=== PATIENT | female | born 1930 | race Caucasian/White ===

== ENCOUNTER 2018-01-20 14:41 | Inpatient (IN) ==
[2018-01-20] MEDS ORDERED: cefTRIAXone 2,000 MG in SODIUM CHLORIDE 0.9% 100 ML IV ONE (15:52)
[2018-01-20 16:19] LABS: Basophils % 0.2 % (0.0-0.8); Hematocrit 36.8 VOL% (35.7-47.0); Hemoglobin 12.3 GM/DL (12.0-16.0); Immature Granulocytes % 1.4 %; Immature Granulocytes Absolute 0.28 #; Lymphocytes # 1.5 10*3/uL (1.4-4.0); Lymphocytes % 7.3 % (21.3-54.2); Mean Corpuscular HGB Conc 33.4 GM/DL (32-36); Mean Corpuscular Hemoglobin 31 PG (27-34); Mean Corpuscular Volume 93.4 FL (87-102); Mean Platelet Volume 11.1 FL (9.6-12.0); Monocytes # 2.1 10*3/uL (0.11-0.8); Monocytes % 10.5 % (1.7-12.7); Neutrophils # 16.5 10*3/uL (1.4-7.4); Neutrophils % 80.6 % (38.7-73.9); Platelet Count 206 T/CUMM (130-400); Red Blood Count 3.94 MC/CUMM (3.8-5.5); Red Cell Distribution Width 14.4 % (9.3-17.3); White Blood Count 20.5 T/CUMM (4-12)
[2018-01-20] MEDS ORDERED: SODIUM CHLORIDE 0.9% 500 ML IV STA (16:25)
[2018-01-20 16:27] LABS: INR 1.6; PT Patient Result 16.2 SECS; Partial Thromboplastin Time 33.6 SECS (0-40)
[2018-01-20] MEDS ORDERED: cefTRIAXone 1,000 MG VIAL ONE (16:27)
[2018-01-20 16:32] LABS: Amorphous Crystals,Urine Occasional /HPF (Few); Apearance,Urine Slightly Hazy (Clear); Bilirubin,Urine Negative (Negative); Blood, Urine Negative (Negative); Glucose,Urine (UA) Negative (Negative); Ketones,Urine Negative (Negative); Mucus,Urine Occasional /LPF (Occasional); Nitrite,Urine Negative (Negative); Protein,Urine 30 MG/DL; Squamous Epithelial Cell,Urine Occasional /HPF (0-10); Urine Color Yellow (Yellow); Urine Specific Gravity 1.014 (1.001-1.035); Urine Urobilinogen < 2.0 EU/DL (0.2-1.0); WBC,Urine 3 /HPF (0-6)
[2018-01-20 16:38] LABS: Lymphocytes 3 % (20-55); Platelet Estimate Normal; Segmented Neutrophils 88 % (50-85); Total Cells Counted 100
[2018-01-20] MEDS ORDERED: MAGNESIUM SULF RIDER 4 GM in PREMIX 1 EACH IV PRN (16:43)
[2018-01-20] MEDS ORDERED: AZITHROMYCIN INJ 500 MG in SODIUM CHLORIDE 0.9% 250 ML IV SCH (17:00)
[2018-01-20] MEDS ORDERED: cefTRIAXone 1,000 MG in SYRINGE 1 EACH IV SCH (17:00)
[2018-01-20] MEDS ORDERED: ONDANSETRON 4 MG/2 ML VIAL IV PRN (17:07)
[2018-01-20 17:17] LABS: Sedimentation Rate-Westergren 70 MM/HR (0-30)
[2018-01-20 17:21] LABS: Ammonia < 10 UMOL/L (11-32)
[2018-01-20 17:23] LABS: Calcium 10.7 MG/DL (8.5-10.1)
[2018-01-20 17:24] LABS: Alanine Aminotransferase 26 U/L (13-56); Albumin 2.6 G/DL (3.4-5.0); Alkaline Phosphatase 114 U/L (45-117); Aspartate Amino Transferase 35 U/L (0-37); Bilirubin,Total 0.53 MG/DL (0.2-1.0); Blood Urea Nitrogen 39 MG/DL (7-18); Glucose 92 MG/DL (74-106); Osmolality,Calculated 278.1 MOS/KG (273-304); Sodium 135 MMOL/L (136-145); Total Protein 6.2 G/DL (6.4-8.3)
[2018-01-20] MEDS: SODIUM CHLORIDE 0.45% 1,000 ML IV SCH (19:10)
[2018-01-20] MEDS ORDERED: WARFARIN 4 MG TABLET PO SCH (19:30)
[2018-01-21 04:27] LABS: INR 1.9; PT Patient Result 19.5 SECS
[2018-01-21 05:01] LABS: Albumin 2.3 G/DL (3.4-5.0); Bilirubin,Total 0.9 MG/DL (0.2-1.0); Calcium 9.6 MG/DL (8.5-10.1); Potassium 3.8 MMOL/L (3.5-5.1); Risk Ratio 2.93; Total Protein 5.6 G/DL (6.4-8.3); VLDL CHOLESTEROL 11.8 MG/DL
[2018-01-21] MEDS: SODIUM CHLORIDE 0.45% 1,000 ML IV SCH (07:59)
[2018-01-21] MEDS: MAGNESIUM SULF RIDER 2 GM in PREMIX 1 EACH IV PRN (08:50)
[2018-01-21] MEDS: PANTOPRAZOLE 40 MG TABLET PO SCH (08:50)
[2018-01-21] MEDS ORDERED: PIPERACILLIN/TAZOBACTAM 3,375 MG in SODIUM CHLORIDE 0.9% 100 ML IV SCH (09:30)
[2018-01-21] MEDS: AZITHROMYCIN INJ 500 MG in SODIUM CHLORIDE 0.9% 250 ML IV SCH (10:00)
[2018-01-21] MEDS: cefTRIAXone 1,000 MG in SYRINGE 1 EACH IV SCH (17:27)
[2018-01-21] MEDS ORDERED: WARFARIN 2 MG TABLET PO SCH (18:00)
[2018-01-21] MEDS: ACETAMINOPHEN 325 MG TABLET PO PRN (19:35)
[2018-01-22] MEDS: SODIUM CHLORIDE 0.45% 1,000 ML IV SCH ×2 (01:49→12:40)
[2018-01-22 04:41] LABS: Basophils % 0.2 % (0.0-0.8); Eosinophils # 0.2 10*3/uL (0.0-0.87); Eosinophils % 1.1 % (0.00-10.9); Hematocrit 34.5 VOL% (35.7-47.0); Hemoglobin 11.4 GM/DL (12.0-16.0); Immature Granulocytes Absolute 0.13 #; Lymphocytes # 1.3 10*3/uL (1.4-4.0); Lymphocytes % 9.6 % (21.3-54.2); Mean Corpuscular Hemoglobin 31 PG (27-34); Mean Corpuscular Volume 92.5 FL (87-102); Mean Platelet Volume 11.3 FL (9.6-12.0); Monocytes # 1.1 10*3/uL (0.11-0.8); Monocytes % 7.9 % (1.7-12.7); Neutrophils # 10.8 10*3/uL (1.4-7.4); Neutrophils % 80.2 % (38.7-73.9); Platelet Count 188 T/CUMM (130-400); Red Blood Count 3.73 MC/CUMM (3.8-5.5); Red Cell Distribution Width 14.2 % (9.3-17.3); White Blood Count 13.4 T/CUMM (4-12)
[2018-01-22 04:49] LABS: INR 3.7
[2018-01-22 05:01] LABS: PT Patient Result 36.8 SECS
[2018-01-22 05:14] LABS: Albumin 2.1 G/DL (3.4-5.0); Bilirubin,Total 0.8 MG/DL (0.2-1.0); Calcium 9.1 MG/DL (8.5-10.1); Total Protein 5.7 G/DL (6.4-8.3)
[2018-01-22 05:15] LABS: Osmolality,Calculated 269.4 MOS/KG (273-304); Potassium 3.2 MMOL/L (3.5-5.1)
[2018-01-22] MEDS: POTASSIUM CHLORIDE RIDER 10 MEQ in PREMIX 1 EACH IV PRN ×2 (05:51→06:46)
[2018-01-22] MEDS ORDERED: POTASSIUM PHOSPHATE 30 MMOL in SODIUM CHLORIDE 0.9% 250 ML IV ONE (07:09)
[2018-01-22] MEDS: ACETAMINOPHEN 325 MG TABLET PO PRN ×2 (08:08→20:15)
[2018-01-22] MEDS: PANTOPRAZOLE 40 MG TABLET PO SCH (08:08)
[2018-01-22] MEDS: AZITHROMYCIN INJ 500 MG in SODIUM CHLORIDE 0.9% 250 ML IV SCH (11:00)
[2018-01-22] MEDS: cefTRIAXone 1,000 MG in SYRINGE 1 EACH IV SCH (18:24)
[2018-01-23] MEDS: SODIUM CHLORIDE 0.45% 1,000 ML IV SCH (01:48)
[2018-01-23 03:11] LABS: Basophils % 0.2 % (0.0-0.8); Eosinophils # 0.2 10*3/uL (0.0-0.87); Eosinophils % 1.7 % (0.00-10.9); Hematocrit 32.3 VOL% (35.7-47.0); Hemoglobin 10.7 GM/DL (12.0-16.0); Immature Granulocytes % 1.3 %; Immature Granulocytes Absolute 0.14 #; Lymphocytes # 1.1 10*3/uL (1.4-4.0); Lymphocytes % 10.3 % (21.3-54.2); Mean Corpuscular HGB Conc 33.1 GM/DL (32-36); Mean Corpuscular Hemoglobin 30 PG (27-34); Mean Corpuscular Volume 91.8 FL (87-102); Mean Platelet Volume 10.9 FL (9.6-12.0); Monocytes % 8.8 % (1.7-12.7); Neutrophils # 8.6 10*3/uL (1.4-7.4); Neutrophils % 77.7 % (38.7-73.9); Platelet Count 212 T/CUMM (130-400); Red Blood Count 3.52 MC/CUMM (3.8-5.5); Red Cell Distribution Width 14.1 % (9.3-17.3)
[2018-01-23 03:23] LABS: INR 3.8
[2018-01-23 03:27] LABS: Bilirubin,Total 0.8 MG/DL (0.2-1.0); Calcium 8.7 MG/DL (8.5-10.1); Osmolality,Calculated 270.1 MOS/KG (273-304); Potassium 3.7 MMOL/L (3.5-5.1); Total Protein 5.4 G/DL (6.4-8.3)
[2018-01-23] MEDS: MAGNESIUM SULF RIDER 2 GM in PREMIX 1 EACH IV PRN (03:44)
[2018-01-23] MEDS ORDERED: AZITHROMYCIN 250 MG TABLET PO SCH (09:00)
[2018-01-23] MEDS ORDERED: MAGNESIUM SULF RIDER 2 GM in PREMIX 1 EACH IV ONE (09:30)
[2018-01-23] MEDS: PANTOPRAZOLE 40 MG TABLET PO SCH (09:41)
[2018-01-23 11:41] VITALS: BP 134/89
[2018-01-23] MEDS ORDERED: POTASSIUM PHOS/SOD PHOS POWDER 250 MG PACK PO SCH (12:00)
[2018-01-23] MEDS ORDERED: CYANOCOBALAMIN 1000 MCG/1 ML VIAL IM SCH (12:00)
== END 2018-01-23 13:10 | DRG 177 ==
LOC: N.ED 14:41 → SUATTDRO 17:41 → N.EDINP 17:41 → N.2E 17:52
PROVIDERS: ADMIT Internal Medicine Geriatric Medicine; ATTEND Internal Medicine

== ENCOUNTER 2018-05-14 12:43 | Observation (INO) ==
[2018-05-14] MEDS ORDERED: SODIUM CHLORIDE 0.9% 1,000 ML IV STA (13:11)
[2018-05-14 14:35] LABS: Basophils % 0.1 % (0.0-0.8); Eosinophils # 0.2 10*3/uL (0.0-0.87); Eosinophils % 2.6 % (0.00-10.9); Hematocrit 33.1 VOL% (35.7-47.0); Hemoglobin 10.3 GM/DL (12.0-16.0); Immature Granulocytes % 1.6 %; Immature Granulocytes Absolute 0.12 #; Lymphocytes # 0.9 10*3/uL (1.4-4.0); Lymphocytes % 11.1 % (21.3-54.2); Mean Corpuscular HGB Conc 31.1 GM/DL (32-36); Mean Corpuscular Hemoglobin 30 PG (27-34); Mean Corpuscular Volume 96.5 FL (87-102); Mean Platelet Volume 10.5 FL (9.6-12.0); Monocytes # 0.5 10*3/uL (0.11-0.8); Monocytes % 6.6 % (1.7-12.7); Platelet Count 303 T/CUMM (130-400); Red Blood Count 3.43 MC/CUMM (3.8-5.5); Red Cell Distribution Width 14.1 % (9.3-17.3); White Blood Count 7.6 T/CUMM (4-12)
[2018-05-14 14:47] LABS: INR 1.4; PT Patient Result 14.7 SECS; Partial Thromboplastin Time 31.7 SECS (0-40)
[2018-05-14 14:59] LABS: Apearance,Urine CLEAR (Clear); Bilirubin,Urine Negative (Negative); Blood, Urine Negative (Negative); Glucose,Urine (UA) Negative (Negative); Hyaline Casts,Urine 3 /LPF (0-3); Ketones,Urine Negative (Negative); Mucus,Urine Occasional /LPF (Occasional); Nitrite,Urine Negative (Negative); Protein,Urine Negative; RBC,Urine 1 /HPF (0-4); Squamous Epithelial Cell,Urine Occasional /HPF (0-10); Urine Color Yellow (Yellow); Urine Specific Gravity 1.011 (1.001-1.035); Urine Urobilinogen < 2.0 EU/DL (0.2-1.0); WBC,Urine 1 /HPF (0-6)
[2018-05-14 14:59] LABS: Alanine Aminotransferase 17 U/L (13-56); Albumin 2.3 G/DL (3.4-5.0); Alkaline Phosphatase 104 U/L (45-117); Aspartate Amino Transferase 23 U/L (0-37); Bilirubin,Total < 0.39 MG/DL (0.2-1.0); Blood Urea Nitrogen 30 MG/DL (7-18); Calcium 8.2 MG/DL (8.5-10.1); Glucose 109 MG/DL (74-106); Osmolality,Calculated 281.7 MOS/KG (273-304); Potassium 4.4 MMOL/L (3.5-5.1); Sodium 138 MMOL/L (136-145); Total Protein 5.2 G/DL (6.4-8.3)
[2018-05-14] MEDS ORDERED: ENOXAPARIN 40 MG/0.4 ML SYRINGE SUBCUT SCH (16:30)
[2018-05-14] MEDS ORDERED: PRAMIPEXOLE 0.25 MG TABLET PO PRN (16:55)
[2018-05-14] MEDS ORDERED: ALUMINUM/MAGNES/SIMETH MAX STR 30 ML UDCUP PO PRN (16:55)
[2018-05-14] MEDS ORDERED: ACETAMINOPHEN 325 MG TABLET PO PRN (16:55)
[2018-05-14] MEDS ORDERED: LACTULOSE 20 GM/30 ML UDCUP PO PRN (16:55)
[2018-05-14] MEDS ORDERED: CYANOCOBALAMIN 1000 MCG/1 ML VIAL IM SCH (17:00)
[2018-05-14] MEDS: SODIUM CHLORIDE 0.9% 1,000 ML IV SCH (18:36)
[2018-05-14] MEDS ORDERED: DOCUSATE SODIUM 100 MG CAPSULE PO SCH (20:00)
[2018-05-14] MEDS ORDERED: SERTRALINE 25 MG TABLET PO SCH (21:00)
[2018-05-14] MEDS ORDERED: MELATONIN 3 MG TABLET PO SCH (21:00)
[2018-05-14] MEDS ORDERED: LATANOPROST 0.005% OPH SOLN 2.5 ML BOTTLE BOTH EYES SCH (21:00)
[2018-05-14] MEDS: MIRTAZAPINE 15 MG TABLET PO SCH ×2 (22:29→22:40)
[2018-05-14] MEDS: CIPROFLOXACIN 500 MG TABLET PO SCH (22:30)
[2018-05-14] MEDS: CARBOXYMETHYLCELLULOSE 1% OPH SOLN BOTH EYES SCH (22:31)
[2018-05-15] MEDS: SODIUM CHLORIDE 0.9% 1,000 ML IV SCH ×2 (02:36→10:37)
[2018-05-15] MEDS ORDERED: PANTOPRAZOLE 40 MG TABLET PO SCH (06:00)
[2018-05-15 06:10] LABS: Basophils % 0.3 % (0.0-0.8); Eosinophils # 0.3 10*3/uL (0.0-0.87); Eosinophils % 3.6 % (0.00-10.9); Hematocrit 33.1 VOL% (35.7-47.0); Hemoglobin 10.2 GM/DL (12.0-16.0); Immature Granulocytes % 1.1 %; Immature Granulocytes Absolute 0.08 #; Lymphocytes # 1.7 10*3/uL (1.4-4.0); Lymphocytes % 23.3 % (21.3-54.2); Mean Corpuscular HGB Conc 30.8 GM/DL (32-36); Mean Corpuscular Hemoglobin 30 PG (27-34); Mean Corpuscular Volume 95.7 FL (87-102); Mean Platelet Volume 10.9 FL (9.6-12.0); Monocytes # 0.6 10*3/uL (0.11-0.8); Monocytes % 8.1 % (1.7-12.7); Neutrophils # 4.6 10*3/uL (1.4-7.4); Neutrophils % 63.6 % (38.7-73.9); Platelet Count 290 T/CUMM (130-400); Red Blood Count 3.46 MC/CUMM (3.8-5.5); Red Cell Distribution Width 14.3 % (9.3-17.3); White Blood Count 7.3 T/CUMM (4-12)
[2018-05-15 06:26] LABS: Calcium 8.4 MG/DL (8.5-10.1); Osmolality,Calculated 277.7 MOS/KG (273-304); Potassium 3.7 MMOL/L (3.5-5.1)
[2018-05-15] MEDS ORDERED: LEVOTHYROXINE 125 MCG TABLET PO SCH (06:30)
[2018-05-15] MEDS ORDERED: METOPROLOL SUCCINATE XL 100 MG TABLET PO SCH (08:00)
[2018-05-15] MEDS ORDERED: LOSARTAN 50 MG TABLET PO SCH (08:00)
[2018-05-15] MEDS ORDERED: NAPROXEN 250 MG TABLET PO SCH (09:00)
[2018-05-15] MEDS ORDERED: MULTIVITAMIN (CENTRUM) TABLET PO SCH (09:00)
[2018-05-15] MEDS ORDERED: POTASSIUM CHLORIDE 10 MEQ TABLET PO SCH (09:00)
[2018-05-15] MEDS ORDERED: MAGNESIUM OXIDE 400 MG TABLET PO SCH (09:00)
[2018-05-15] MEDS ORDERED: CALCIUM (CARBONATE)/VITAMIN D 600 MG-400 UNIT TABLET PO SCH (09:00)
[2018-05-15] MEDS: CIPROFLOXACIN 500 MG TABLET PO SCH (09:54)
[2018-05-15] MEDS: CETIRIZINE 10 MG TABLET PO SCH ×2 (09:57→09:59)
[2018-05-15] MEDS: CARBOXYMETHYLCELLULOSE 1% OPH SOLN BOTH EYES SCH (11:31)
[2018-05-15 16:28] VITALS: BP 163/101
[2018-05-15] MEDS ORDERED: WARFARIN 2 MG TABLET PO SCH (18:00)
== END 2018-05-15 16:49 ==
LOC: EDUNIT# → EDBD → N.EDINP 12:43 → N.ED 12:43 → SUATTDRO 16:16 → N.5E 17:08
PROVIDERS: ADMIT Hospitalist; ATTEND Emergency Medicine

== ENCOUNTER 2018-10-04 19:02 | Inpatient (IN) ==
[2018-10-04] MEDS ORDERED: LEVOFLOXACIN 750 MG TABLET PO STA (19:24)
[2018-10-04] MEDS ORDERED: SODIUM CHLORIDE 0.9% 500 ML IV STA ×2 (19:24→22:26)
[2018-10-04] MEDS ORDERED: DILTIAZEM 50 MG/10 ML VIAL IV STA (19:26)
[2018-10-04] MEDS ORDERED: ONDANSETRON 4 MG/2 ML VIAL IV STA (19:26)
[2018-10-04] MEDS ORDERED: DILTIAZEM 25 MG/5 ML VIAL IV ONE (19:29)
[2018-10-04 20:02] LABS: Basophils # 0.1 10*3/uL (0.0-0.2); Basophils % 0.3 % (0.0-0.8); Eosinophils % 0.2 % (0.00-10.9); Hematocrit 39.2 VOL% (35.7-47.0); Hemoglobin 12.2 GM/DL (12.0-16.0); Immature Granulocytes % 0.7 %; Immature Granulocytes Absolute 0.14 #; Lymphocytes # 0.6 10*3/uL (1.4-4.0); Lymphocytes % 3.2 % (21.3-54.2); Mean Corpuscular HGB Conc 31.1 GM/DL (32-36); Mean Corpuscular Volume 92.7 FL (87-102); Mean Platelet Volume 10.5 FL (9.6-12.0); Monocytes % 4.9 % (1.7-12.7); Neutrophils % 90.7 % (38.7-73.9); Platelet Count 329 T/CUMM (130-400); Red Blood Count 4.23 MC/CUMM (3.8-5.5); Red Cell Distribution Width 15.1 % (9.3-17.3); White Blood Count 19.3 T/CUMM (4-12)
[2018-10-04 20:08] LABS: Apearance,Urine Slightly Hazy (Clear); Bilirubin,Urine Negative (Negative); Blood, Urine Small mg/dL (Negative); Glucose,Urine (UA) 50 mg/dL (Negative); Ketones,Urine 5 mg/dL (Negative); Mucus,Urine Occasional /LPF (Occasional); Nitrite,Urine Negative (Negative); Protein,Urine 30 MG/DL; RBC,Urine 16 /HPF (0-4); Squamous Epithelial Cell,Urine Occasional /HPF (0-10); Urine Color Yellow (Yellow); Urine Specific Gravity 1.009 (1.001-1.035); Urine Urobilinogen < 2.0 EU/DL (0.2-1.0); WBC,Urine <1 /HPF (0-6)
[2018-10-04 20:12] LABS: INR 1.2; PT Patient Result 12.5 SECS
[2018-10-04 20:25] LABS: Albumin 3.1 G/DL (3.4-5.0); Bilirubin,Total 0.6 MG/DL (0.2-1.0); Calcium 9.8 MG/DL (8.5-10.1); Total Protein 7.2 G/DL (6.4-8.3)
[2018-10-04 20:27] LABS: Lymphocytes 2 % (20-55); Platelet Estimate Normal; Segmented Neutrophils 91 % (50-85); Total Cells Counted 100
[2018-10-04 20:28] LABS: Troponin I < 0.015 NG/ML (0.00-0.045)
[2018-10-04] MEDS ORDERED: LEVOFLOXACIN INJ 150 ML IV ONE (20:55)
[2018-10-04] MEDS ORDERED: LEVOFLOXACIN INJ 750 MG in PREMIX 1 EACH IV STA (20:56)
[2018-10-04] MEDS ORDERED: ACETAMINOPHEN 650 MG SUPP RECTAL STA (22:26)
[2018-10-04] MEDS ORDERED: ACETAMINOPHEN 325 MG SUPP RECTAL ONE (22:27)
[2018-10-05] MEDS ORDERED: LOPERAMIDE 2 MG CAPSULE PO PRN (00:31)
[2018-10-05] MEDS ORDERED: ALUMINUM/MAGNES/SIMETH MAX STR 30 ML UDCUP PO PRN (00:31)
[2018-10-05] MEDS ORDERED: ONDANSETRON 4 MG/2 ML VIAL IV PRN (00:31)
[2018-10-05] MEDS ORDERED: LACTULOSE 20 GM/30 ML UDCUP PO PRN (00:31)
[2018-10-05] MEDS: SODIUM CHLORIDE 0.9% 1,000 ML IV SCH ×2 (01:20→21:10)
[2018-10-05] MEDS: PIPERACILLIN/TAZOBACTAM 3,375 MG in SODIUM CHLORIDE 0.9% 100 ML IV SCH ×3 (01:21→17:46)
[2018-10-05] MEDS: SERTRALINE 25 MG TABLET PO SCH ×2 (01:23→21:12)
[2018-10-05] MEDS: MIRTAZAPINE 15 MG TABLET PO SCH ×2 (01:25→21:13)
[2018-10-05] MEDS: MELATONIN 3 MG TABLET PO SCH ×2 (01:25→21:12)
[2018-10-05 05:24] LABS: Basophils % 0.2 % (0.0-0.8); Eosinophils % 0.1 % (0.00-10.9); Hematocrit 30.8 VOL% (35.7-47.0); Hemoglobin 9.5 GM/DL (12.0-16.0); Immature Granulocytes % 0.5 %; Immature Granulocytes Absolute 0.09 #; Lymphocytes # 0.8 10*3/uL (1.4-4.0); Lymphocytes % 4.6 % (21.3-54.2); Mean Corpuscular HGB Conc 30.8 GM/DL (32-36); Mean Corpuscular Volume 93.3 FL (87-102); Mean Platelet Volume 10.5 FL (9.6-12.0); Neutrophils % 88.6 % (38.7-73.9); Platelet Count 243 T/CUMM (130-400); Red Cell Distribution Width 15.1 % (9.3-17.3); White Blood Count 16.6 T/CUMM (4-12)
[2018-10-05 05:47] LABS: Calcium 8.9 MG/DL (8.5-10.1); Osmolality,Calculated 279.5 MOS/KG (273-304)
[2018-10-05] MEDS: LEVOTHYROXINE 125 MCG TABLET PO SCH (06:14)
[2018-10-05] MEDS: VANCOMYCIN INJ 750 MG in SODIUM CHLORIDE 0.9% 250 ML IV SCH (06:14)
[2018-10-05 06:59] LABS: Hypochromasia 1+; Lymphocytes 3 % (20-55); Ovalocytes 1+; Platelet Estimate Normal; Segmented Neutrophils 90 % (50-85); Total Cells Counted 100
[2018-10-05] MEDS: ACETAMINOPHEN 325 MG TABLET PO PRN ×3 (09:29→21:12)
[2018-10-05] MEDS: CARBOXYMETHYLCELLULOSE 1% OPH SOLN BOTH EYES SCH ×3 (09:29→21:13)
[2018-10-05] MEDS: MULTIVITAMIN (OCUVITE) TABLET PO SCH (09:29)
[2018-10-05] MEDS: POTASSIUM CHLORIDE 10 MEQ TABLET PO SCH (09:31)
[2018-10-05] MEDS: PANTOPRAZOLE 40 MG TABLET PO SCH (09:31)
[2018-10-05] MEDS: CALCIUM (CARBONATE)/VITAMIN D 600 MG-400 UNIT TABLET PO SCH (09:32)
[2018-10-05] MEDS: LOSARTAN 50 MG TABLET PO SCH (09:32)
[2018-10-05] MEDS: MULTIVITAMIN (CENTRUM) TABLET PO SCH (09:33)
[2018-10-05] MEDS: MAGNESIUM OXIDE 400 MG TABLET PO SCH ×2 (09:33→17:45)
[2018-10-05] MEDS: METOPROLOL SUCCINATE XL 100 MG TABLET PO SCH (09:33)
[2018-10-05] MEDS: WARFARIN 2 MG TABLET PO SCH (18:03)
[2018-10-05] MEDS: DOCUSATE SODIUM 100 MG CAPSULE PO SCH (21:12)
[2018-10-05] MEDS: LATANOPROST 0.005% OPH SOLN 2.5 ML BOTTLE BOTH EYES SCH (21:13)
[2018-10-06] MEDS: PIPERACILLIN/TAZOBACTAM 3,375 MG in SODIUM CHLORIDE 0.9% 100 ML IV SCH ×3 (01:59→17:12)
[2018-10-06 05:15] LABS: Basophils % 0.3 % (0.0-0.8); Eosinophils # 0.2 10*3/uL (0.0-0.87); Eosinophils % 2.1 % (0.00-10.9); Hematocrit 34.8 VOL% (35.7-47.0); Hemoglobin 10.4 GM/DL (12.0-16.0); Immature Granulocytes % 0.7 %; Immature Granulocytes Absolute 0.06 #; Lymphocytes # 0.9 10*3/uL (1.4-4.0); Lymphocytes % 9.5 % (21.3-54.2); Mean Corpuscular HGB Conc 29.9 GM/DL (32-36); Mean Corpuscular Volume 95.6 FL (87-102); Mean Platelet Volume 10.7 FL (9.6-12.0); Monocytes % 9.7 % (1.7-12.7); Neutrophils % 77.7 % (38.7-73.9); Platelet Count 230 T/CUMM (130-400); Red Blood Count 3.64 MC/CUMM (3.8-5.5); Red Cell Distribution Width 15.3 % (9.3-17.3); White Blood Count 9.1 T/CUMM (4-12)
[2018-10-06 05:35] LABS: INR 1.1; PT Patient Result 12.4 SECS
[2018-10-06 05:42] LABS: Calcium 9.6 MG/DL (8.5-10.1); Osmolality,Calculated 279.4 MOS/KG (273-304)
[2018-10-06] MEDS: SODIUM CHLORIDE 0.9% 1,000 ML IV SCH ×2 (06:02→17:12)
[2018-10-06] MEDS: VANCOMYCIN INJ 750 MG in SODIUM CHLORIDE 0.9% 250 ML IV SCH (06:02)
[2018-10-06] MEDS: LOSARTAN 50 MG TABLET PO SCH (08:37)
[2018-10-06] MEDS: MULTIVITAMIN (OCUVITE) TABLET PO SCH (08:37)
[2018-10-06] MEDS: PANTOPRAZOLE 40 MG TABLET PO SCH (08:37)
[2018-10-06] MEDS: MAGNESIUM OXIDE 400 MG TABLET PO SCH ×2 (08:38→15:41)
[2018-10-06] MEDS: ACETAMINOPHEN 325 MG TABLET PO PRN ×2 (08:38→15:40)
[2018-10-06] MEDS: POTASSIUM CHLORIDE 10 MEQ TABLET PO SCH (08:39)
[2018-10-06] MEDS: CARBOXYMETHYLCELLULOSE 1% OPH SOLN BOTH EYES SCH ×3 (08:39→22:00)
[2018-10-06] MEDS: METOPROLOL SUCCINATE XL 100 MG TABLET PO SCH (08:39)
[2018-10-06] MEDS: LEVOTHYROXINE 125 MCG TABLET PO SCH (08:39)
[2018-10-06] MEDS: MULTIVITAMIN (CENTRUM) TABLET PO SCH (08:39)
[2018-10-06] MEDS: CALCIUM (CARBONATE)/VITAMIN D 600 MG-400 UNIT TABLET PO SCH (08:39)
[2018-10-06] MEDS: ALBUTEROL/IPRATROPIUM 3 ML NEB RESP TX SCH ×4 (11:10→23:41)
[2018-10-06] MEDS: WARFARIN 2 MG TABLET PO SCH (17:13)
[2018-10-06] MEDS: DOCUSATE SODIUM 100 MG CAPSULE PO SCH (21:57)
[2018-10-06] MEDS: SERTRALINE 25 MG TABLET PO SCH (21:58)
[2018-10-06] MEDS: MELATONIN 3 MG TABLET PO SCH (21:58)
[2018-10-06] MEDS: MIRTAZAPINE 15 MG TABLET PO SCH (21:59)
[2018-10-06] MEDS: LATANOPROST 0.005% OPH SOLN 2.5 ML BOTTLE BOTH EYES SCH (22:00)
[2018-10-07] MEDS: PIPERACILLIN/TAZOBACTAM 3,375 MG in SODIUM CHLORIDE 0.9% 100 ML IV SCH ×3 (01:42→18:04)
[2018-10-07] MEDS: ALBUTEROL/IPRATROPIUM 3 ML NEB RESP TX SCH ×5 (02:42→19:26)
[2018-10-07] MEDS: VANCOMYCIN INJ 750 MG in SODIUM CHLORIDE 0.9% 250 ML IV SCH (05:05)
[2018-10-07] MEDS: LEVOTHYROXINE 125 MCG TABLET PO SCH (05:05)
[2018-10-07 06:31] LABS: INR 1.4; PT Patient Result 15.5 SECS
[2018-10-07 08:11] LABS: Basophils % 0.5 % (0.0-0.8); Eosinophils # 0.2 10*3/uL (0.0-0.87); Eosinophils % 2.7 % (0.00-10.9); Hematocrit 35.1 VOL% (35.7-47.0); Hemoglobin 10.9 GM/DL (12.0-16.0); Immature Granulocytes % 0.5 %; Immature Granulocytes Absolute 0.04 #; Lymphocytes # 1.2 10*3/uL (1.4-4.0); Lymphocytes % 13.9 % (21.3-54.2); Mean Corpuscular HGB Conc 31.1 GM/DL (32-36); Mean Corpuscular Volume 93.6 FL (87-102); Monocytes % 7.9 % (1.7-12.7); Neutrophils % 74.5 % (38.7-73.9); Platelet Count 253 T/CUMM (130-400); Red Blood Count 3.75 MC/CUMM (3.8-5.5); Red Cell Distribution Width 15.5 % (9.3-17.3); White Blood Count 8.4 T/CUMM (4-12)
[2018-10-07] MEDS: CALCIUM (CARBONATE)/VITAMIN D 600 MG-400 UNIT TABLET PO SCH (08:13)
[2018-10-07] MEDS: PANTOPRAZOLE 40 MG TABLET PO SCH (08:13)
[2018-10-07] MEDS: MULTIVITAMIN (OCUVITE) TABLET PO SCH (08:13)
[2018-10-07] MEDS: MULTIVITAMIN (CENTRUM) TABLET PO SCH (08:13)
[2018-10-07] MEDS: MAGNESIUM OXIDE 400 MG TABLET PO SCH ×2 (08:13→18:04)
[2018-10-07] MEDS: METOPROLOL SUCCINATE XL 100 MG TABLET PO SCH (08:14)
[2018-10-07] MEDS: LOSARTAN 50 MG TABLET PO SCH (08:14)
[2018-10-07] MEDS: POTASSIUM CHLORIDE 10 MEQ TABLET PO SCH (08:27)
[2018-10-07] MEDS: CARBOXYMETHYLCELLULOSE 1% OPH SOLN BOTH EYES SCH ×2 (08:27→17:34)
[2018-10-07 08:32] LABS: Calcium 9.4 MG/DL (8.5-10.1); Osmolality,Calculated 277.5 MOS/KG (273-304)
[2018-10-07] MEDS ORDERED: METOPROLOL TARTRATE 5 MG/5 ML VIAL IV PRN (09:58)
[2018-10-07] MEDS ORDERED: LORazepam 2 MG/1 ML VIAL IV ONE (17:54)
[2018-10-07] MEDS: WARFARIN 1 MG TABLET PO SCH (18:04)
[2018-10-07] MEDS ORDERED: LORazepam 2 MG/1 ML VIAL ONE (20:04)
[2018-10-07] MEDS: MIRTAZAPINE 15 MG TABLET PO SCH (20:07)
[2018-10-07] MEDS: SERTRALINE 25 MG TABLET PO SCH (20:08)
[2018-10-07] MEDS: MELATONIN 3 MG TABLET PO SCH (20:09)
[2018-10-07] MEDS: DOCUSATE SODIUM 100 MG CAPSULE PO SCH (20:26)
[2018-10-08] MEDS: SODIUM CHLORIDE 0.9% 1,000 ML IV SCH ×2 (00:37→16:04)
[2018-10-08] MEDS: CARBOXYMETHYLCELLULOSE 1% OPH SOLN BOTH EYES SCH ×4 (01:00→22:05)
[2018-10-08] MEDS: LATANOPROST 0.005% OPH SOLN 2.5 ML BOTTLE BOTH EYES SCH ×2 (01:00→22:06)
[2018-10-08 04:47] LABS: Basophils % 0.4 % (0.0-0.8); Eosinophils # 0.3 10*3/uL (0.0-0.87); Eosinophils % 3.4 % (0.00-10.9); Hematocrit 37.5 VOL% (35.7-47.0); Hemoglobin 11.5 GM/DL (12.0-16.0); Immature Granulocytes % 0.7 %; Immature Granulocytes Absolute 0.06 #; Lymphocytes % 11.5 % (21.3-54.2); Mean Corpuscular HGB Conc 30.7 GM/DL (32-36); Mean Corpuscular Volume 92.6 FL (87-102); Monocytes % 8.8 % (1.7-12.7); Neutrophils % 75.2 % (38.7-73.9); Platelet Count 288 T/CUMM (130-400); Red Blood Count 4.05 MC/CUMM (3.8-5.5); Red Cell Distribution Width 15.1 % (9.3-17.3); White Blood Count 8.5 T/CUMM (4-12)
[2018-10-08 04:56] LABS: INR 1.5; PT Patient Result 15.7 SECS
[2018-10-08 05:09] LABS: Calcium 9.9 MG/DL (8.5-10.1); Osmolality,Calculated 279.3 MOS/KG (273-304)
[2018-10-08] MEDS: VANCOMYCIN INJ 750 MG in SODIUM CHLORIDE 0.9% 250 ML IV SCH (05:47)
[2018-10-08] MEDS ORDERED: POTASSIUM CHLORIDE 20 MEQ TABLET PO PRN (10:33)
[2018-10-08] MEDS: PANTOPRAZOLE 40 MG TABLET PO SCH (10:34)
[2018-10-08] MEDS: CALCIUM (CARBONATE)/VITAMIN D 600 MG-400 UNIT TABLET PO SCH (10:34)
[2018-10-08] MEDS: POTASSIUM CHLORIDE 10 MEQ TABLET PO SCH (10:34)
[2018-10-08] MEDS: MULTIVITAMIN (OCUVITE) TABLET PO SCH (10:34)
[2018-10-08] MEDS: LOSARTAN 50 MG TABLET PO SCH (10:34)
[2018-10-08] MEDS: MAGNESIUM OXIDE 400 MG TABLET PO SCH ×2 (10:34→16:02)
[2018-10-08] MEDS: MULTIVITAMIN (CENTRUM) TABLET PO SCH (10:34)
[2018-10-08] MEDS: LEVOTHYROXINE 125 MCG TABLET PO SCH (10:34)
[2018-10-08] MEDS: METOPROLOL SUCCINATE XL 100 MG TABLET PO SCH (10:35)
[2018-10-08] MEDS: ACETAMINOPHEN 325 MG TABLET PO PRN ×2 (12:07→16:02)
[2018-10-08] MEDS: PIPERACILLIN/TAZOBACTAM 3,375 MG in SODIUM CHLORIDE 0.9% 100 ML IV SCH ×3 (12:07→18:34)
[2018-10-08] MEDS: WARFARIN 1 MG TABLET PO SCH (18:35)
[2018-10-08] MEDS: DOCUSATE SODIUM 100 MG CAPSULE PO SCH (22:04)
[2018-10-08] MEDS: SERTRALINE 25 MG TABLET PO SCH (22:05)
[2018-10-08] MEDS: MIRTAZAPINE 15 MG TABLET PO SCH (22:05)
[2018-10-08] MEDS: MELATONIN 3 MG TABLET PO SCH (22:05)
[2018-10-09] MEDS: PIPERACILLIN/TAZOBACTAM 3,375 MG in SODIUM CHLORIDE 0.9% 100 ML IV SCH ×2 (01:29→12:06)
[2018-10-09 05:21] LABS: Basophils # 0.1 10*3/uL (0.0-0.2); Basophils % 0.8 % (0.0-0.8); Eosinophils # 0.4 10*3/uL (0.0-0.87); Eosinophils % 7.5 % (0.00-10.9); Hematocrit 34.9 VOL% (35.7-47.0); Hemoglobin 10.9 GM/DL (12.0-16.0); Immature Granulocytes Absolute 0.06 #; Lymphocytes # 1.4 10*3/uL (1.4-4.0); Lymphocytes % 23.9 % (21.3-54.2); Mean Corpuscular HGB Conc 31.2 GM/DL (32-36); Mean Corpuscular Volume 91.4 FL (87-102); Mean Platelet Volume 10.1 FL (9.6-12.0); Monocytes % 9.7 % (1.7-12.7); Neutrophils % 57.1 % (38.7-73.9); Platelet Count 269 T/CUMM (130-400); Red Blood Count 3.82 MC/CUMM (3.8-5.5); White Blood Count 5.9 T/CUMM (4-12)
[2018-10-09 05:36] LABS: INR 1.4; PT Patient Result 15.1 SECS
[2018-10-09 05:54] LABS: Calcium 9.3 MG/DL (8.5-10.1); Osmolality,Calculated 274.5 MOS/KG (273-304)
[2018-10-09] MEDS: VANCOMYCIN INJ 750 MG in SODIUM CHLORIDE 0.9% 250 ML IV SCH (06:16)
[2018-10-09] MEDS: LEVOTHYROXINE 125 MCG TABLET PO SCH (06:16)
[2018-10-09] MEDS: MAGNESIUM OXIDE 400 MG TABLET PO SCH ×2 (08:33→12:53)
[2018-10-09] MEDS: CARBOXYMETHYLCELLULOSE 1% OPH SOLN BOTH EYES SCH (08:34)
[2018-10-09] MEDS: MULTIVITAMIN (OCUVITE) TABLET PO SCH ×2 (08:34→12:54)
[2018-10-09] MEDS: LOSARTAN 50 MG TABLET PO SCH ×2 (08:34→12:54)
[2018-10-09] MEDS: CALCIUM (CARBONATE)/VITAMIN D 600 MG-400 UNIT TABLET PO SCH ×2 (08:34→12:53)
[2018-10-09] MEDS: METOPROLOL SUCCINATE XL 100 MG TABLET PO SCH ×2 (08:35→12:54)
[2018-10-09] MEDS: MULTIVITAMIN (CENTRUM) TABLET PO SCH ×2 (08:35→12:53)
[2018-10-09] MEDS: PANTOPRAZOLE 40 MG TABLET PO SCH ×2 (08:36→12:53)
[2018-10-09] MEDS ORDERED: CYANOCOBALAMIN 1000 MCG/1 ML VIAL IM SCH (09:00)
[2018-10-09] MEDS ORDERED: POTASSIUM CHLORIDE RIDER 20 MEQ in PREMIX 1 EACH IV PRN (09:11)
[2018-10-09] MEDS ORDERED: POTASSIUM CHLORIDE RIDER 10 MEQ in PREMIX 1 EACH IV PRN (10:56)
[2018-10-09 12:46] VITALS: BP 161/95
[2018-10-09] MEDS: POTASSIUM CHLORIDE 10 MEQ TABLET PO SCH (12:50)
[2018-10-09] MEDS ORDERED: POTASSIUM CHLORIDE 20 MEQ TABLET PO ONE (14:10)
[2018-10-09] MEDS ORDERED: WARFARIN 2.5 MG TABLET PO SCH (18:00)
== END 2018-10-09 15:45 | DRG 194 ==
LOC: EDBD → EDUNIT# → N.ED 19:02 → N.TELEN 21:54 → SUATTDRO 21:54 → N.TELEN 23:04
PROVIDERS: ADMIT Internal Medicine; ATTEND Internal Medicine